=== PATIENT | female | born 1985 | race Caucasian/White ===

== ENCOUNTER 2019-04-24 09:17 | Day surgery (SDC) | payer MEDICAID ==
[2019-04-24] MEDS ORDERED: LIDOCAINE 1%/EPI (1:100,000) (MDV) 20 ML (11:50)
[2019-04-24] MEDS ORDERED: MIDAZOLAM 1 MG/ML 2 ML INJ (11:50)
[2019-04-24] MEDS ORDERED: HEPARIN 1000 UNITS/NS (A-LINE) 1,000 ML (11:50)
[2019-04-24] MEDS ORDERED: HEPARIN 1000 UNITS/ML 10 ML INJ (11:50)
[2019-04-24] MEDS ORDERED: FENTAnyl 50 MCG/ML VIAL (11:50)
[2019-04-24] MEDS ORDERED: POLYMYXIN/BACITRACIN 1L IRRIG (11:53)
[2019-04-24] MEDS ORDERED: CEFAZOLIN 1 GM/50 ML (PMX) 50 ML IVPB (11:55)
[2019-04-24] MEDS ORDERED: IODIXANOL LOCM 100 ML BTL (12:39)
== END 2019-04-24 15:40 | disposition home or self-care (01) ==
LOC: SDS 09:17
DX: C50.911 Malignant neoplasm of unspecified site of right female breast (principal)
CPT/HCPCS: 36561